=== PATIENT | female | born 1940 | race Caucasian/White ===

== ENCOUNTER 2017-05-29 17:30 | Emergency (ER) | payer MEDICARE, BC ==
[2017-05-29 18:02] LABS: Urine Appearance Slightly Cloudy; Urine Color Yellow
[2017-05-29 18:04] LABS: Urine Bilirubin Negative (NEGATIVE)
[2017-05-29 18:05] LABS: Urine Bacteria 1+; Urine Blood Negative /ul (NEGATIVE); Urine Ketone Negative (NEGATIVE); Urine Nitrite Negative (NEGATIVE); Urine Protein Negative (NEGATIVE); Urine RBC None Seen /hpf (0-5); Urine Urobilinogen Normal (NORMAL); Urine WBC 25-50 /hpf (0-5); Urine pH 7.5 pH (5.0-7.0)
[2017-05-29] MEDS ORDERED: PHENAZOPYRIDINE HCL 100 MG TABLET PO ONE (18:50)
[2017-05-29] MEDS ORDERED: NITROFURANTOIN/NITROFURAN MAC 100 MG CAPSULE PO SCH (19:00)
--- NOTE | 2017-05-29 19:04 | ERNOTE ---
ER Female HPI Date of Service: 05/29/17 Stated Complaint: UTI Presenting Symptoms: dysuria Time Seen by Provider: 05/29/17 18:31 Source: patient Immunizations: IMMUNIZATION HX Immunizations Up to Date Yes History of Influenza Vaccine Yes Hx Pneumococcal Vaccination Yes Allergies/Adverse Reactions: Allergies No Known Allergies Allergy (Verified 04/30/17 07:04) Home Medications: HOME MEDICATIONS Amlodipine Besylate 25 mg PO DAILY 05/29/17 [Last Taken Unknown] Aspirin [Aspir-Low] 81 mg PO DAILY 05/29/17 [Last Taken Unknown] Benazepril HCl 10 mg PO DAILY 05/29/17 [Last Taken Unknown] Cholecalciferol [Vitamin D] 1,000 unit PO DAILY 05/29/17 [Last Taken Unknown] Levothyroxine Sodium [Synthroid] 50 mcg PO DAILY 05/29/17 [Last Taken Unknown] Nitrofurantoin/Nitrofuran Mac [Macrobid] 100 mg PO Q12H #20 cap 05/29/17 [Last Taken Unknown] Omeprazole [Prilosec] 20 mg PO DAILY 05/29/17 [Last Taken Unknown] Phenazopyridine HCl [Pyridium] 100 mg PO TID #6 tab 05/29/17 [Last Taken Unknown ] Pilocarpine HCl 5 mg PO BID 05/29/17 [Last Taken Unknown] Propranolol HCl [Inderal] 10 mg PO BID 05/29/17 [Last Taken Unknown] predniSONE [Prednisone] 5 mg PO DAILY 05/29/17 [Last Taken Unknown] - History of Present Illness Narrative: 77-year-old female presents to the emergency room for complaints of dysuria x 1 day Date (Duration): 05/29/17 Timing: Present: constant, getting worse Quality: Present: burning, cramping, fullness, sharpness Onset Location: Present: suprapubic, urethral Radiation: Present: none Activities at Onset: Present: none Prior Abdominal Problems: Present: similar symptoms Sexual Jauca History: Present: not active Review of Systems - Review of Systems Constitutional: Present: no symptoms reported EYE: Present: no symptoms reported ENT: Present: no symptoms reported Respiratory: Present: no symptoms reported Cardiology: Present: no symptoms reported Gastrointestinal/Abdominal: Present: no symptoms reported Genitourinary: Present: See HPI, dysuria Musculoskeletal: Present: no symptoms reported Skin: Present: no symptoms reported Neurological: Present: no symptoms reported Endocrine: Present: no symptoms reported Hematologic/Lymphatic: Present: no symptoms reported Psych: Present: no symptoms reported All Other Systems: All systems neg except as marked - Patient's Past Medical History Patient History - Medical: GERD, Hypothyroidism, Other Patient History - Cardiac/Respiratory: Aneurysm, Hypertension, Other Patient History - Cancer: Skin Patient History - Surgical Procedures: Appendectomy, Hysterectomy Patient History - Other: None - Social History Living Situations: spouse Psych History: No pertinent hx Smoking Status: Never smoker Have you smoked in the past 12 months: No Do you dip or chew tobacco: No Alcohol Use: none Drug Use: none - Immunizations Immunizations Up to Date: Yes Hx Pneumococcal Vaccination: Yes History of Influenza Vaccine: Yes Physical Exam - Physical Exam Narrative: patient states she has discomfort with urination. General Appearance: Present: wd/wn, alert, no apparent distress Head Exam: Present: normal inspection, no evidence of injury Eye Exam: Normal inspection: bilateral, PERRL: bilateral Ears, Nose, Throat: Present: normal ENT inspection, normal pharynx Neck: Present: normal inspection, nontender, supple, full range of motion Respiratory: Present: no respiratory distress, normal breath sounds, no accessory muscle use, chest nontender, lungs clear Cardiovascular/Chest: Present: regular rate, rhythm, no murmur, normal peripheral pulses Gastrointestinal/Abdominal: Present: normal bowel sounds, nontender, nondistended, soft, no organomegaly Back Exam: Present: normal inspection, normal range of motion, no CVA tenderness , no vertebral tenderness Extremity Exam: Present: normal inspection, non-tender, normal range of motion, no edema Neurological Exam: Present: alert, oriented, normal mood/affect, no motor/ sensory deficits Skin Exam: Present: normal color, warm/dry Lymphatic Exam: Present: no adenopathy ED Progress - Results and Orders Patient's Lab Results:: I have reviewed the patient's lab results. Results and Orders: UA positive for bacterial infection. culture pending - Vital Signs Patient's Vital Signs:: I have reviewed the patient's vital signs. Vital Signs: Vital Signs 05/29/17 17:38 Temperature 37.0 C Pulse Rate 70 Respiratory 16 Rate Blood Pressure 155/72 O2 Sat by Pulse 97 Oximetry - Progress/Reassessment Chief Complaint: Urinary Tract Problems Progress:: Improved Plan - Plan Plan: patient to follow up with pcp for UA culture results. Departure Clinical Impression: UTI (urinary tract infection) Qualifiers: Urinary tract infection type: site unspecified Hematuria presence: without hematuria Qualified Code(s): N39.0 - Urinary tract infection, site not specified - Departure Disposition: Home self-care Condition: Good Instructions: Urinary Tract Infection, Adult, [id number] Additional Instructions: return to ED for worsening of current symptoms or inability to take antibiotics. drink plenty of fluids and rest today Prescriptions: Nitrofurantoin/Nitrofuran Mac [Macrobid] 100 mg PO Q12H #20 cap Phenazopyridine HCl [Pyridium] 100 mg PO TID #6 tab
[2017-05-29 20:20] VITALS: BP 151/74
== END 2017-05-29 19:20 | disposition home or self-care (01) ==
LOC: ER 17:30 → MERGE 17:30 → ER 19:20
DX: N39.0 Urinary tract infection, site not specified (principal); E03.9 Hypothyroidism, unspecified; K21.9 Gastro-esophageal reflux disease without esophagitis; I10 Essential (primary) hypertension; Z85.828 Personal history of other malignant neoplasm of skin

== ENCOUNTER 2019-05-26 14:36 | Inpatient (IN) ==
[2019-05-26] MEDS ORDERED: ENOXAPARIN SODIUM 40 MG/0.4 ML SYRG SC SCH (15:00)
--- NOTE | 2019-05-26 15:44 | HP ---
Chief Complaint - Chief Complaint Date of Service: 05/26/19 Time of Service: 14:36 Chief Complaint: Weakness and hyponatremia History of Present Illness: 79-year-old female with a past medical history of Sjogren's syndrome, hypothyroi dism, hypertension, GERD presents with complaints of weakness. Symptoms began about 6 months ago but has been progressively worsening of the past few days. She has seen her primary care provider in the office for her symptoms with no improvement. She wanted to see her PCP yesterday but an appointment was not available so they sent her to the emergency department yesterday. In the ER she was found to have elevated blood pressure arou nd 200 systolic and a sodium of 126. She was given hydralazine 20mg IV push and 1 L of IV fluid hydration with normal saline. Her sodium went up to 127 and she was sent home and asked to follow with her PCP the next day. Patient has also had a 10 to 15 pound unintentional weight loss over the past 1 year. In the emergency room she also had a CT scan of her neck that showed focal masslike asymmetry to the base of the tongue with focal swelling on the right, associated narrowing of the hypopharynx region on the right, recommend ENT consult and direct visualization. CTA showed no aortic dissection or aortic aneurysm. Patient's daughter states she made an appointment with ENT for follow-up next week. She is being admitted directly today for acute hyponatremia and weakness. Of note she was hospitalized about a week ago at [facility] for hypertension. Medical History (Last Reviewed 05/26/19 @ 15:51 by Marsha Dinero RN) Sjogrens syndrome (Acute) Thrombophlebitis leg superficial Onset Date: ~01/01/18 left leg Headache Onset Date: Unknown Hypertension Hypothyroidism Mitral valve prolapse Onset Date: Unknown Osteoporosis Onset Date: Unknown bone density 06/2017 Sjogrens syndrome Onset Date: Unknown takes prednisone/pilocarpine daily-treated by Dr. 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, squamous DVT (deep venous thrombosis) Onset Date: Unknown 1 during , 1 after aneurysm Herpes simplex Onset Date: Unknown Herpes zoster Onset Date: Unknown TIA (transient ischemic attack) Onset Date: 1995 several prior to aneurysm, last one 2011 Surgical History: Surgical History (Last Reviewed 05/26/19 @ 15:51 by Marsha Dinero RN) History of hysterectomy (Resolved) 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 History of appendectomy Status post coil embolization of cerebral aneurysm Onset Date: ~1996 H/O thyroidectomy Onset Date: Unknown partial Family History: Family History (Last Reviewed 05/26/19 @ 15:51 by Marsha Dinero, RN) Brother CVA (cerebral vascular accident) x3 Diabetes Rheumatoid arthritis Heart disease Father CVA (cerebral vascular accident) Cancer, Onset Age: 72 lung CA (smoker) Mother Diabetes CVA (cerebral vascular accident) Hypothyroidism Daughter Diabetes Hypothyroidism Rheumatoid arthritis Son Hypothyroidism Sister Cancer, Onset Age: 86 kidney CA yu to liver, bone, eye Social History: (Last Reviewed 05/26/19 @ 15:51 by Marsha Dinero, RN) Social History: adopted: No fdc: No Marital status: household members: spouse current occupational status: retired current occupation: farming current occupational exposures/hazards: No Service: No Tobacco: Smoking Status: Never smoker Alcohol: alcohol intake: never Substance Use: substance use type: does not use Dietary Habits: caffeine: Yes Review Of Systems (GEN) - Review of Systems Generalized/Overall Review: Absent: Chills, Fever EENTM: Present: Eye Pain. Absent: Ear Pain Respiratory: Absent: Shortness of Breath Cardiac: Absent: Chest Pain Abdominal: Absent: Abdominal Pain Neurological: Present: Weakness Misc: All systems neg except as marked Immunizations: IMMUNIZATION HX Immunizations Up to Date Yes History of Influenza Vaccine No Hx Pneumococcal Vaccination No Allergies/Adverse Reactions: Allergies Allergy/AdvReac Type Severity Reaction Status Date / Time cyclosporine [From Restasis] Allergy Unknown Verified 05/25/19 15:51 Sulfa (Sulfonamide AdvReac RASH Verified 05/25/19 15:51 Antibiotics) Home Medications: HOME MEDICATIONS aspirin 81 mg tablet,delayed release 81 mg PO DAILY #90 tab 03/02/19 [Last Taken Unknown] chlorthalidone 25 mg tablet 25 mg PO DAILY #90 tab 04/27/19 [Last Taken Unknown] propranolol 10 mg tablet 10 mg PO BID #60 tab 05/08/19 [Last Taken Unknown] Alendronate Sodium [Fosamax] 70 mg PO Q7D 05/25/19 [Last Taken Unknown] Levothyroxine Sodium [Synthroid] 50 mcg PO DAILY 05/25/19 [Last Taken Unknown] Omeprazole 20 mg PO DAILY 05/25/19 [Last Taken Unknown] Pilocarpine HCl 5 mg PO BID 05/25/19 [Last Taken Unknown] Benazepril HCl 2.5 mg PO DAILY 05/26/19 [Last Taken Unknown] predniSONE [Prednisone] 2 tab PO DAILY 05/26/19 [Last Taken Unknown] Exam - Exam Vital Signs: Vital Signs - Last Taken Temp 36.8 C 05/26/19 14:39 Pulse 77 05/26/19 14:39 Resp 18 05/26/19 14:39 BP 152/62 H 05/26/19 14:39 Pulse Ox 96 05/26/19 14:39 Constitutional: Present: Alert, Cooperative, Well developed, Elderly, Thin and frail ENT Exam: Present: hearing grossly normal, dry mucous membranes Eye Exam: bilateral eye: normal inspection, EOMI Neck: Present: non-tender, trachea midline. Absent: lymphadenopathy (R), lymphadenopathy (L) Back Exam: Present: no CVA tenderness, no vertebral tenderness Respiratory: Present: lungs clear, no accessory muscle use, No wheezing. Absent: crackles, rhonchi Cardiovascular/Chest: Present: normal peripheral pulses, regular rate, rhythm, no murmur Peripheral Pulses: dorsalis-pedis (R): 1+, dorsalis-pedis (L): 1+ Abdomen: Present: Normal bowel sounds, soft, nontender, obese Extremity: Present: no pedal edema Skin Exam: Present: normal color, warm/dry Neurologic: Present: alert, normal mood/affect Appearance: Present: appropriate appearance Eye contact: Present: cooperative Thoughts: Present: normal thought pattern, normal mood /affect Assessment/Plan - Narrative Narrative: 79-year-old female with a past medical history of Sjogren's syndrome, hypothyroidism, hypertension, GERD presents with complaints of weakness. Symptoms began about 6 months ago but has been progressively worsening of the past few days. She has seen her primary care provider in the office for her symptoms with no improvement she wanted to see her PCP yesterday but an appointment was not available so they sent her to the emergency department yesterday. In the ER she was found to have elevated blood pressure around 200 systolic and a sodium of 126. She was given hydralazine 20mg IV push and 1 L of IV fluid hydration with normal saline, her sodium went up to 127 and she was sent home and asked to follow-up with her PCP the next day. In the emergency room she had a CT scan of her neck that showed focal masslike asymmetry to the base of the tongue with focal swelling on the right, associated narrowing of the hypopharynx region on the right, recommend ENT consult and direct visualization. CTA showed no aortic dissection or aortic aneurysm. Patient's daughter states she made an appointment with ENT for follow-up next week. She is being admitted directly today for acute hyponatremia and weakness. Plan #1 obtain baseline blood work with CBC and CMP, serum osmolarity, urine osmolarity, random urine sodium #2 I will start her on normal saline IV at 100 cc/h #3 resume her home medications for comorbidities #4 Lovenox 40 mg daily for DVT prophylaxis #5 obtain CBC and CMP in the morning - Assessment/Plan (1) Acute hyponatremia Problem: Acute (2) HTN (hypertension) Problem: Acute Qualifiers: Hypertension type: essential hypertension Qualified Code(s): I10 - Essential (primary) hypertension (3) Weakness Problem: Acute (4) Pharyngeal mass Problem: Acute (5) Sjogrens syndrome Problem: Chronic Qualifiers: (6) Hypothyroidism Problem: Chronic
[2019-05-26 16:06] LABS: Albumin * 2.9 gm/dl (3.4-5.0); Anion Gap 8.8 mmol/L (6.8-13.8); BUN/Creatinine Ratio 30.9 (9.0-21.6); Bilirubin, Total 0.6 mg/dL (0.0-1.1); Ca. Corrected For Albumin 9.2 mg/dL (8.4-10.2); Calcium * 8.6 mg/dL (7.9-10.9); Carbon Dioxide 27.6 mmol/L (24-32.6); Hematocrit 38.6 % (37.0-47.0); Hemoglobin 12.9 gm/dL (12.5-16.0); Mean Cell Volume 85.8 fl (78-100); Mean Corpuscular Hemoglobin 28.7 pg (27-31); Mean Corpuscular Hgb Conc 33.4 g/dl (32-36); Mean Platelet Volume 9.2 fl (8-12.5); Neutrophil # 6.4 K/mm3 (1.3-6.0); Neutrophil % 76.2 % (42-75.0); Platelet Count 233 K/mm3 (150-450); Potassium 3.4 mmol/L (3.4-4.6); Red Cell Distribution Width 13.2 % (11.5-14.0); Total Protein 6.6 gm/dL (6.2-8.2); White Blood Count 8.4 K/mm3 (4.0-10.5)
[2019-05-26] MEDS: NORMAL SALINE 1,000 ML IV PRN (17:05)
[2019-05-26] MEDS ORDERED: predniSONE 20 MG TABLET PO SCH (17:30)
[2019-05-26] MEDS: ENALAPRIL MALEATE 5 MG TABLET PO SCH (17:31)
[2019-05-26] MEDS: PROPRANOLOL HCL 10 MG TABLET PO SCH (20:24)
[2019-05-26] MEDS: Pilocarpine Hcl 5 MG PO SCH (20:54)
[2019-05-27] MEDS: NORMAL SALINE 1,000 ML IV PRN (02:16)
[2019-05-27 05:59] LABS: Hematocrit 35.5 % (37.0-47.0); Hemoglobin 11.6 gm/dL (12.5-16.0); Mean Corpuscular Hemoglobin 28.4 pg (27-31); Mean Corpuscular Hgb Conc 32.7 g/dl (32-36); Mean Platelet Volume 9.3 fl (8-12.5); Neutrophil # 2.9 K/mm3 (1.3-6.0); Neutrophil % 73.4 % (42-75.0); Platelet Count 175 K/mm3 (150-450); Red Blood Count 4.08 M/mm3 (4.2-5.4); Red Cell Distribution Width 13.2 % (11.5-14.0); White Blood Count 3.9 K/mm3 (4.0-10.5)
[2019-05-27 06:12] LABS: Albumin * 2.4 gm/dl (3.4-5.0); Anion Gap 8.2 mmol/L (6.8-13.8); Bilirubin, Total 0.4 mg/dL (0.0-1.1); Carbon Dioxide 26.4 mmol/L (24-32.6); Potassium 3.6 mmol/L (3.4-4.6); Total Protein 5.7 gm/dL (6.2-8.2)
[2019-05-27] MEDS ORDERED: PANTOPRAZOLE SODIUM 20 MG TABLET.DR PO SCH (07:00)
[2019-05-27] MEDS ORDERED: LEVOTHYROXINE SODIUM 50 MCG TABLET PO SCH (07:00)
[2019-05-27] MEDS: ENALAPRIL MALEATE 5 MG TABLET PO SCH (08:45)
[2019-05-27] MEDS: PROPRANOLOL HCL 10 MG TABLET PO SCH (08:45)
[2019-05-27] MEDS: Pilocarpine Hcl 5 MG PO SCH (08:45)
[2019-05-27] MEDS ORDERED: CHLORTHALIDONE 25 MG TABLET PO SCH (09:00)
--- NOTE | 2019-05-27 09:45 | DS ---
(1) HTN (hypertension) Problem: Acute Qualifiers: Hypertension type: essential hypertension Qualified Code(s): I10 - Essential (primary) hypertension (2) Weakness Problem: Acute (3) Acute hyponatremia Problem: Resolved (4) Hypothyroidism Problem: Chronic (5) Pharyngeal mass Problem: Acute (6) Sjogrens syndrome Problem: Chronic Qualifiers: Date of Discharge:: 05/27/19 Hospital Course: Varsha Ramesh is a 79-year-old female with a past medical history of Sjogren's syndrome, hypothyroidism, hypertension, GERD who was admitted on 05/26/2019 with complaints of weakness. Her symptoms began about 6 months ago but had been pro gressively worsening for the past few days. She had seen her primary care provider in the office for her symptoms with no improvement. She wanted to see her PCP yesterday but an appointment was not available so they sent her to the emergency department yesterday. In the ER she was found to have elevated blood pressure around 200 systolic and a sodium of 126. She was given hydralazine 20mg IV push and 1 L of IV fluid hydration with normal saline. Her sodium went up to 127 and she was sent home and asked to follow with her PCP the next day. The The patient has also had a 10 to 15 pound unintentional weight loss over the past 1 year. In the emergency room she also had a CT scan of her neck that showed focal masslike asymmetry to the base of the tongue with focal swelling on the right, associated narrowing of the hypopharynx region on the right, recommend ENT consult and direct visualization. CTA showed no aortic dissection or aortic aneurysm. Patient's daughter states she made an appointment with ENT for follow-up next week. She was admitted directly yesterday for acute hyponatremia and weakness. Of note she was hospitalized about a week ago at [facility] for hypertension. She was started on IV normal saline and put her on her home medications for her blood pressure . This morning her sodium is up to 133 and her blood pressure is in the 120s systolic. She is clinically feeling much better and wants to go home. This week turnaround was not anticipated on admission. She however is still complaining of weakness and difficulty of ambulation and and for this reason she is homebound. We will refer her to home health for physical therapy so she can get exercises for strengthening and gait balance. The need for home health care skilled services is directly related to the time spent [id number] with the person. Addendum: The patient much prescribed 7 days of 40 mg of prednisone by her health and safety instructor and she finished it yesterday. She is to follow-up with him so they will know if she has to be on a maintenance low-dose prednisone for her Sjogren's. Procedures Performed: none Results and Findings: Lab Pending Results 05/26/19 15:44: WBC 8.4, RBC 4.50, Hgb 12.9, Hct 38.6, MCV 85.8, MCH 28.7, MCHC 33.4, RDW 13.2, Plt Count 233, MPV 9.2, Immature Gran % (Auto) 0.40, Immature Gran # (Auto) 0.03, Neutrophils % 76.2 H, Lymphocytes % 7.6 L, Monocytes % 15.7 H, Eosinophils % 0.0, Basophils % 0.1, Nucleated RBC % 0.0, Neutrophils # 6.4 H, Lymphocytes # 0.64 L, Monocytes # 1.3 H, Eosinophils # 0.0, Absolute Basophils 0.0 05/26/19 15:44: Sodium 127 L, Plasma Sodium 128 L, Potassium 3.4, Chloride 94 L, Carbon Dioxide 27.6, Anion Gap 8.8, BUN 17, Creatinine 0.55, Est GFR (Non-Af Amer) 114, BUN/Creatinine Ratio 30.9 H, Random Glucose 150 H D, Calcium 8.6, Calcium Adj for Albumin 9.2, Total Bilirubin 0.6, AST 21, ALT 15 L, Alkaline Phosphatase 54, Total Protein 6.6, Albumin 2.9 L 05/26/19 18:20: Ur Random Sodium 72 05/27/19 05:55: WBC 3.9 L D, RBC 4.08 L, Hgb 11.6 L, Hct 35.5 L, MCV 87.0, MCH 28.4, MCHC 32.7, RDW 13.2, Plt Count 175, MPV 9.3, Immature Gran % (Auto) 0.30, Immature Gran # (Auto) 0.01, Neutrophils % 73.4, Lymphocytes % 16.1 L, Monocytes % 10.2 H, Eosinophils % 0.0, Basophils % 0.0, Nucleated RBC % 0.0, Neutrophils # 2.9, Lymphocytes # 0.63 L, Monocytes # 0.4, Eosinophils # 0.0, Absolute Basophils 0.0 05/27/19 05:55: Sodium 133, Plasma Sodium 134, Potassium 3.6, Chloride 102, Carbon Dioxide 26.4, Anion Gap 8.2, BUN 14, Creatinine 0.50, Est GFR (Non-Af Amer) 127, BUN/Creatinine Ratio 28.0 H, Random Glucose 140 H, Calcium 8.0, Calc ium Adj for Albumin 9.0, Total Bilirubin 0.4, AST 15, ALT 13 L, Alkaline Phosphatase 44 L, Total Protein 5.7 L, Albumin 2.4 L Discharge Location: Home Disposition: Home Health Service Home Health Agency: [facility] Home Health Condition: Stable Face to Face Encounter completed per [facility] Guidelines: Yes Discharge Activity: Activity as tolerated Discharge Diet: Low salt Referrals: Denia Acuña DO [Primary Care Provider] - Additional Patient Instructions (free text): Follow-up with Dr. Denia Acuña in 2 weeks. Complete Home Medications List: Complete Home Medication List: aspirin 81 mg tablet,delayed release 81 mg PO DAILY #90 tab 03/02/19 chlorthalidone 25 mg tablet 25 mg PO DAILY #90 tab 04/27/19 propranolol 10 mg tablet 10 mg PO BID #60 tab 05/08/19 Alendronate Sodium [Fosamax] 70 mg PO Q7D 05/25/19 Levothyroxine Sodium [Synthroid] 50 mcg PO DAILY 05/25/19 Omeprazole 20 mg PO DAILY 05/25/19 Pilocarpine HCl 5 mg PO BID 05/25/19 Benazepril HCl 2.5 mg PO DAILY 05/26/19
[2019-05-27 10:53] VITALS: BP 151/50
[2019-05-29] MEDS ORDERED: ALENDRONATE SODIUM 70 MG TABLET PO SCH (06:00)
== END 2019-05-27 11:05 | disposition home health service (06) | DRG 641 ==
LOC: MS 14:36
PROVIDERS: ADMIT Internal Medicine; ATTEND Internal Medicine
CPT/HCPCS: 36415; 80053; 83930; 83935; 84300; 85025